=== PATIENT | female | born 1990 ===

== ENCOUNTER → 2020-02-17 09:17 | Outpatient (BNVA) | payer OTHER, SELFPAY | PROVIDERS: Visit Provider Advanced Practice Midwife | DX: Z34.83 Encounter for supervision of other normal pregnancy, third trimester (principal); Z3A.25 25 weeks gestation of pregnancy | CPT/HCPCS: 99212 ==

== ENCOUNTER 2020-02-18 08:59 | Outpatient (REF) | payer MEDICAID, SELFPAY | END 2020-02-18 09:00 | disposition home or self-care (01) | LOC: HO.LAB 08:59 | PROVIDERS: PCP Internal Medicine; Visit Provider Obstetrics & Gynecology | DX: Z13.89 Encounter for screening for other disorder (principal) ==

== ENCOUNTER 2020-02-22 09:29 | Outpatient (REF) | payer OTHER, SELFPAY ==
[2020-02-22 10:21] LABS: Basophils Percent Auto 0.2 % (0-2); Eosinophils Absolute Auto 0.1 X10*3/uL (0.0-0.4); Eosinophils Percent Auto 0.4 % (0-4); Hemoglobin 10.3 g/dl (12.0-16.0); Imm Gran Abs Auto 0.05 X10*3/uL (0.00-0.03); Imm Gran Pct Auto 0.4 % (0.0-0.4); Lymphocytes Absolute Auto 2.5 X10*3/uL (1.2-4.9); MANUAL DIFF FLAG NO; Mean Corpuscular HGB Conc 33.2 g/dl (31.0-35.0); Mean Corpuscular Hemoglobin 30.2 pg (27.0-33.0); Mean Corpuscular Volume 90.9 fL (80-98); Mean Platelet Volume 10.7 fL (9.4-12.3); Monocytes Absolute Auto 0.6 X10*3/uL (0.1-1.2); Monocytes Percent Auto 5.3 % (2-11); Neutrophils Absolute Auto 8.2 X10*3/uL (2.0-8.3); Neutrophils Percent Auto 71.7 % (45-73); Platelet Count 270 X10*3/uL (160-400); Red Blood Count 3.41 X10*6/uL (4.20-5.50); Red Cell Distribution Width 12.5 % (11.0-16.0); White Blood Count 11.5 X10*3/uL (4.8-10.8)
[2020-02-22 10:37] LABS: Glucose Fasting 88 mg/dL (60-99)
== END 2020-02-22 09:30 | disposition home or self-care (01) ==
LOC: HO.LAB 09:29
PROVIDERS: PCP Internal Medicine; Visit Provider Obstetrics & Gynecology
DX: Z34.83 Encounter for supervision of other normal pregnancy, third trimester (principal); Z3A.00 Weeks of gestation of pregnancy not specified
CPT/HCPCS: 36415; 82951; 85025

== ENCOUNTER → 2020-03-02 09:28 | Outpatient (BNVA) | payer MEDICAID, SELFPAY | PROVIDERS: Visit Provider Advanced Practice Midwife | DX: Z76.89 Persons encountering health services in other specified circumstances (principal) ==

== ENCOUNTER → 2020-03-16 10:26 | Outpatient (BNVA) | payer OTHER, SELFPAY | PROVIDERS: Visit Provider Advanced Practice Midwife | DX: O99.810 Abnormal glucose complicating pregnancy (principal); O26.899 Other specified pregnancy related conditions, unspecified trimester; Q79.60 Ehlers-Danlos syndrome, unspecified; O99.519 Diseases of the respiratory system complicating pregnancy, unspecified trimester; J45.909 Unspecified asthma, uncomplicated; O99.019 Anemia complicating pregnancy, unspecified trimester; D64.9 Anemia, unspecified; Z3A.00 Weeks of gestation of pregnancy not specified; Z79.899 Other long term (current) drug therapy; Z23 Encounter for immunization | CPT/HCPCS: 90686 ==

== ENCOUNTER → 2020-03-17 08:47 | Outpatient (BNVA) | payer MEDICAID, SELFPAY | PROVIDERS: Visit Provider Advanced Practice Midwife | DX: Z76.89 Persons encountering health services in other specified circumstances (principal) ==

== ENCOUNTER 2020-03-23 10:12 | Outpatient (REF) | payer OTHER, SELFPAY ==
[2020-03-23 13:29] LABS: Alanine Aminotransferase 15 U/L (0-31); Aspartate Amino Transferase 17 U/L (5-31); Blood Urea Nitrogen 9 mg/dL (9-16); Estimated Glomerular Filt Rate > 60; Uric Acid 3.5 mg/dL (2.4-5.7)
[2020-03-23 13:31] LABS: Glucose 1 Hour PP 50gm Dose 122 mg/dL (60-140)
[2020-03-23 13:36] LABS: Hematocrit 31.9 % (37-47); Hemoglobin 10.2 g/dl (12.0-16.0); Mean Corpuscular Hemoglobin 28.7 pg (27.0-33.0); Mean Corpuscular Volume 89.6 fL (80-98); Mean Platelet Volume 11.5 fL (9.4-12.3); Platelet Count 316 X10*3/uL (160-400); Red Blood Count 3.56 X10*6/uL (4.20-5.50); Red Cell Distribution Width 12.3 % (11.0-16.0); White Blood Count 12.6 X10*3/uL (4.8-10.8)
[2020-03-23 13:39] LABS: TSH reflex Free T4 0.71 mIU/mL (0.32-4.0)
[2020-03-23 13:56] LABS: Creatinine Urine 91.85 mg/dL; Total Protein Urine Random 9 mg/dL (<12)
== END 2020-03-23 10:13 | disposition home or self-care (01) ==
LOC: HO.LAB 10:12
PROVIDERS: PCP Internal Medicine; Visit Provider Advanced Practice Midwife
DX: O21.9 Vomiting of pregnancy, unspecified (principal); Q79.60 Ehlers-Danlos syndrome, unspecified; Z34.80 Encounter for supervision of other normal pregnancy, unspecified trimester
CPT/HCPCS: 36415; 82565; 84156; 84443; 84450; 84460; 84520; 84550; 85027

== ENCOUNTER → 2020-04-12 13:16 | Outpatient (BNVA) | payer MEDICAID, SELFPAY | PROVIDERS: Visit Provider Advanced Practice Midwife | DX: Z76.89 Persons encountering health services in other specified circumstances (principal) ==

== ENCOUNTER 2020-05-02 11:28 | Outpatient (REF) | payer OTHER, SELFPAY ==
[2020-05-03 08:27] LABS: BV Int Neg Control Negative (Negative); BV Int Pos Control Positive (Positive)
[2020-05-04 06:08] LABS: C. trachomatis RNA TMA NOT DETECTED (NOT DETECTED); N. gonorrhoeae RNA TMA NOT DETECTED (NOT DETECTED)
== END 2020-05-02 11:29 | disposition home or self-care (01) ==
LOC: HO.LNP 11:28
PROVIDERS: Visit Provider Advanced Practice Midwife
DX: Z34.80 Encounter for supervision of other normal pregnancy, unspecified trimester (principal)
CPT/HCPCS: 81003; 87081; 87480; 87491; 87510; 87591; 87660; 99212

== ENCOUNTER 2020-05-09 10:03 | Outpatient (REF) | payer OTHER, SELFPAY ==
[2020-05-09 13:11] LABS: Hemoglobin 9.1 g/dl (12.0-16.0); Mean Corpuscular HGB Conc 31.4 g/dl (31.0-35.0); Mean Corpuscular Hemoglobin 26.8 pg (27.0-33.0); Mean Corpuscular Volume 85.5 fL (80-98); Mean Platelet Volume 12.4 fL (9.4-12.3); Platelet Count 211 X10*3/uL (160-400); Red Blood Count 3.39 X10*6/uL (4.20-5.50); Red Cell Distribution Width 13.7 % (11.0-16.0); White Blood Count 12.8 X10*3/uL (4.8-10.8)
[2020-05-09 14:03] LABS: Alanine Aminotransferase 7 U/L (0-31); Aspartate Amino Transferase 15 U/L (5-31); Uric Acid 6.6 mg/dL (2.4-5.7)
[2020-05-09 14:50] LABS: Creatinine Urine 324.83 mg/dL
[2020-05-09 15:14] LABS: Total Protein Urine Random 226 mg/dL (<12)
== END 2020-05-09 10:04 | disposition home or self-care (01) ==
LOC: HO.LAB 10:03
PROVIDERS: PCP Internal Medicine; Visit Provider Advanced Practice Midwife
DX: O16.3 Unspecified maternal hypertension, third trimester (principal); O26.893 Other specified pregnancy related conditions, third trimester; O47.1 False labor at or after 37 completed weeks of gestation; K21.9 Gastro-esophageal reflux disease without esophagitis; Z3A.37 37 weeks gestation of pregnancy
CPT/HCPCS: 36415; 81003; 84156; 84450; 84460; 84550; 85027; 99212

== ENCOUNTER 2020-06-07 10:39 | Outpatient (REF) | payer OTHER, SELFPAY | END 2020-06-07 10:40 | disposition home or self-care (01) | LOC: HO.LAB 10:39 | PROVIDERS: Visit Provider Internal Medicine | DX: Z20.822 Contact with and (suspected) exposure to COVID-19 (principal) | CPT/HCPCS: 36415; C9803; U0003; U0005 ==

== ENCOUNTER → 2020-09-21 09:15 | Outpatient (BNVA) | payer OTHER, SELFPAY | PROVIDERS: Visit Provider Advanced Practice Midwife | DX: Z64.0 Problems related to unwanted pregnancy (principal) | CPT/HCPCS: 81025; 99212 ==

== ENCOUNTER → 2020-09-28 12:25 | Outpatient (BNVA) | payer OTHER, SELFPAY | PROVIDERS: Visit Provider Obstetrics & Gynecology ==

== ENCOUNTER 2020-10-07 09:06 | Outpatient (REF) | payer OTHER, SELFPAY ==
--- NOTE | ~2020-10-07 | US_ITS ---
EXAMINATION: OBSTETRICAL ULTRASOUND, FIRST TRIMESTER HISTORY: 30-year-old with unknown LMP Viability NT screening COMPARISON: 01/01/2020 TECHNIQUE: Real time transabdominal imaging with color and M-mode Doppler. FINDINGS: A single, live IUP CRL of 46.4 mm c/w 11.4wks is noted. Heart Rate: 160 beats per minute. Normal yolk sac seen. NT was 0.5.mm. NB Present The embryo appears sonographically wnl for this GA. Both maternal ovaries are seen and appear normal. GESTATIONAL AGE: 1. Established GA: N/A wks 2. GA from [facility]: 11.4 wks ESTIMATED DATE OF DELIVERY: 1. Established ELVIS: N/A 2. ELVIS from [facility]: 04/24/2021 US/US OB 1T nuc measure IMPRESSION: 1. A single live IUP 2. CRL is consistent with 11.4 weeks 3. NT of 0.5 mm MFM Consultation: I reviewed the ultrasound findings along with significance of NT measurement. The NT of less than 3mm is generally reassuring. However, the sensitivity for T21 detection is only 60%. I reviewed the availability of serum aneuploidy screening which includes cell-free DNA and placental protein based tests. I discussed the sensitivity, false-positive rate, and other limitations associated with each test. I also reviewed the availability of invasive diagnostic tests that are associated small but definite risk of miscarriage. We also reviewed the differences between screening tests and diagnostic tests. After our discussion, she opted for the First trimester screening that is based on cell-free DNA or non-invasive testing (NIPT). Her last delivery was approximately 5 months ago. She underwent IOL at approximately 3 weeks prior to her due date to preeclampsia. The recurrence risk is approximately 10%. Recommend daily baby aspirin. She has had that 3 healthy term delivery is prior to the most recent delivery in 2019. A follow up at 18 weeks for survey has been scheduled. Thank you very much for this referral. Total time 30 minutes. The time spent was devoted to counseling the patient about the disease and diagnosis, coordinating care including reviewing her records, pertinent lab data and studies, as well as discussing diagnostic evaluation and workup, plan therapeutic interventions and future disposition of care. This includes any additional research needed to obtain further information in formulating the plan of care of this patient. This note was generated with a voice recognition program. Please excuse any errors which may have been overlooked during my review of this note. Sometimes these errors may affect the content or meaning of a given sentence.
== END 2020-10-07 09:07 | disposition home or self-care (01) ==
LOC: HO.US 09:06
PROVIDERS: Visit Provider Obstetrics & Gynecology
DX: O09.891 Supervision of other high risk pregnancies, first trimester (principal)
CPT/HCPCS: 76813

== ENCOUNTER → 2020-11-28 10:00 | Outpatient (BNVA) | payer OTHER, SELFPAY | PROVIDERS: Visit Provider Advanced Practice Midwife | DX: Z34.92 Encounter for supervision of normal pregnancy, unspecified, second trimester (principal); Z3A.19 19 weeks gestation of pregnancy | CPT/HCPCS: 99212 ==

== ENCOUNTER 2020-12-09 09:57 | Outpatient (REF) | payer OTHER, SELFPAY ==
--- NOTE | ~2020-12-09 | US_ITS ---
EXAMINATION: US OBSTETRICAL CLINICAL INFORMATION: 30-year-old at 20.4 weeks of gestation Screening for anomaly COMPARISON: 10/07/2020 TECHNIQUE: Real-time transabdominal ultrasound was performed using C1-5 megahertz transducer. FINDINGS: A single, active, fetus is seen in vertex presentation. The placenta is posterior without previa, and the amniotic fluid volume is wnl. MEASUREMENTS: 1. Biparietal Diameter: 4.8 cm; 20.3 wks 2. Occipital Frontal Diameter: 6.2 cm 3. Head Circumference: 17.7 cm; 20.2 wks 4. Abdominal Circumference: 15.6 cm; 20.6 wks 5. Femur Length: 3.7 cm; 21.5 wks 6. Humerus Length: 3.0 cm; 20.1 wks 7. Tibia Length: 2.8 cm; 20.1 wks 8. Ulna Length: 2.9 cm; 20.6 wks 9. Lateral ventricle: 0.6 cm 10. Cerebellum: 2.1 cm; 20.6 wks 11. Cisterna Magna: 0.43 cm 12. Nuchal Fold: 4.1 mm 13. Heart Rate: 143 beats per minute Rt ovary: normal Lt ovary: normal Cervical length 3.8 cm on T/A. GESTATIONAL AGE: 1. Established GA: 20.4 wks 2. GA from [facility]: 20.6 wks ESTIMATED DATE OF DELIVERY: 1. Established ELVIS: 04/24/2021 2. ELVIS from [facility]: 04/22/2021 ANATOMY: The visualized anatomy includes but not limited to: 1. Cranium: Normal 2. Intracranial anatomy: cavum septum pellucidi, lateral ventricles, choroid plexus, cerebellum, posterior fossa, third and fourth ventricles. 3. face: orbits, lip/palate, profile, nasal bone 4. Heart: four-chamber view of the heart, ventricular septum, foramen ovale, pulmonary vein, left and right outflow tracts, three-vessel view, 3 vessel trachea view, aortic and ductal arches, situs.. 5. Diaphragm: Normal 6. Abdominal wall: Normal 7. Cord Insertion: Normal 8. Spine: Cervical, thoracic, lumbar, sacral. 9. Stomach: Normal size and shape 10. Right Kidney: Normal 11. Left Kidney: Normal 12. 3 vessel cord: Normal 13. Upper extremity: Open hands, fifth digit. 14. Lower extremity: Tibia, fibula, bilateral feet. 15. Bladder: Normal 16. Genitalia: Female, patient aware US/US OB /maternal detail IMPRESSION: 1. Single, living, intrauterine with appropriate biometry. 2. Normal survey DISCUSSION: I reviewed today's ultrasound findings. We discussed the limitations of ultrasound in diagnosing aneuploidy and other congenital abnormalities. I reviewed the differences between screening test and diagnostic test. Amniocentesis was discussed and declined. She was informed that the baseline incidence of congenital abnormalities is approximately 3-5%. Not all these conditions are diagnosable in utero. RECOMMENDATIONS: Follow-up when necessary Thank you for allowing me to participate in her care. Total time 30 minutes. The time spent was devoted to counseling the patient about the disease and diagnosis, coordinating care including reviewing her records, pertinent lab data and studies, as well as discussing diagnostic evaluation and workup, plan therapeutic interventions and future disposition of care. This includes any additional research needed to obtain further information in formulating the plan of care of this patient. This note was generated with a voice recognition program. Please excuse any errors which may have been overlooked during my review of this note. Sometimes these errors may affect the content or meaning of a given sentence.
== END 2020-12-09 09:58 | disposition home or self-care (01) ==
LOC: HO.US 09:57
PROVIDERS: PCP Internal Medicine; Visit Provider Advanced Practice Midwife
DX: Z36.3 Encounter for antenatal screening for malformations (principal); Z34.82 Encounter for supervision of other normal pregnancy, second trimester
CPT/HCPCS: 76811

== ENCOUNTER 2021-02-14 13:14 | Outpatient (REF) | payer OTHER, SELFPAY ==
[2021-02-15 13:56] LABS: CT PCR DETECTED (Not Detect.); NG PCR NOT DETECTED (Not Detect.)
[2021-02-16 08:38] LABS: BV Int Neg Control Negative (Negative); BV Int Pos Control Positive (Positive)
== END 2021-02-14 13:15 | disposition home or self-care (01) ==
LOC: HO.LAB 13:14
PROVIDERS: Visit Provider Advanced Practice Midwife
DX: O99.013 Anemia complicating pregnancy, third trimester (principal); O09.893 Supervision of other high risk pregnancies, third trimester; Z3A.30 30 weeks gestation of pregnancy
CPT/HCPCS: 87480; 87491; 87510; 87591; 87660; 99212

== ENCOUNTER 2021-02-17 10:44 | Outpatient (REF) | payer OTHER, SELFPAY ==
[2021-02-17 11:50] LABS: Hematocrit 29.5 % (37-47); Hemoglobin 9.6 g/dl (12.0-16.0); Mean Corpuscular HGB Conc 32.5 g/dl (31.0-35.0); Mean Corpuscular Hemoglobin 26.7 pg (27.0-33.0); Mean Corpuscular Volume 81.9 fL (80-98); Mean Platelet Volume 11.2 fL (9.4-12.3); Platelet Count 250 X10*3/uL (160-400); Red Cell Distribution Width 13.6 % (11.0-16.0); White Blood Count 8.9 X10*3/uL (4.8-10.8)
[2021-02-17 12:17] LABS: Alanine Aminotransferase 9 U/L (0-31); Aspartate Amino Transferase 14 U/L (5-31); Blood Urea Nitrogen 10 mg/dL (9-16); Estimated Glomerular Filt Rate > 60; Uric Acid 4.2 mg/dL (2.4-5.7)
[2021-02-17 12:23] LABS: Syphilis Screen Nonreactive (Nonreactive)
[2021-02-17 12:26] LABS: Amphetamine Screen Urine Not Detected (Not Detect); Barbiturates, Urine Not Detected (Not Detect); Benzodiazepines Screen Urine Not Detected (Not Detect); Cannabinoid Screen Urine Not Detected (Not Detect); Cocaine Screen Urine Not Detected (Not Detect); Fentanyl, urine Not Detected (Not Detect); Opiate Screen Urine Not Detected (Not Detect); Phencyclidine Screen Urine Not Detected (Not Detect)
[2021-02-17 12:27] LABS: Protein/Creatinine Ratio, Ur 0.08 (<0.2); Total Protein Urine Random 25 mg/dL (<12)
[2021-02-18 13:22] LABS: Rubella IgG Antibody 1.99 Index; Varicella IgG Antibody <135.00 index
[2021-02-20 04:22] LABS: HIV AB/AG Nonreactive (Nonreactive); HIV Num 1 0.07 S/CO (0.00-0.99); ~HepC Num1 0.26 S/CO (0.00-0.79); ~Hepatitis C Antibody Nonreactive (Nonreactive)
[2021-02-20 04:33] LABS: HBsAGNum1 0.24 S/CO (0.00-0.99); Hepatitis B Surface Antigen Negative (Negative)
== END 2021-02-17 10:45 | disposition home or self-care (01) ==
LOC: HO.LAB 10:44
PROVIDERS: PCP Internal Medicine; Visit Provider Advanced Practice Midwife
DX: O09.891 Supervision of other high risk pregnancies, first trimester (principal); O16.3 Unspecified maternal hypertension, third trimester; O99.013 Anemia complicating pregnancy, third trimester
CPT/HCPCS: 80307; 82565; 84156; 84450; 84460; 84520; 84550; 85027; 86762; 86780; 86787; 86803; 86850; 86900; 86901; 87086; 87340; 87389

== ENCOUNTER → 2021-03-03 09:07 | Outpatient (BNVA) | payer OTHER, SELFPAY | PROVIDERS: Visit Provider Advanced Practice Midwife | DX: O09.293 Supervision of pregnancy with other poor reproductive or obstetric history, third trimester (principal); Z3A.32 32 weeks gestation of pregnancy | CPT/HCPCS: 81003; 99212 ==

== ENCOUNTER 2021-03-17 08:08 | Outpatient (REF) | payer OTHER, SELFPAY ==
[2021-03-17 11:18] LABS: Glucose 1 Hour PP 50gm Dose 137 mg/dL (60-140)
[2021-03-17 11:42] LABS: Alanine Aminotransferase 8 U/L (0-31); Aspartate Amino Transferase 14 U/L (5-31); Blood Urea Nitrogen 11 mg/dL (9-16); Uric Acid 4.4 mg/dL (2.4-5.7)
[2021-03-17 12:17] LABS: Creatinine Urine 74.34 mg/dL; Protein/Creatinine Ratio, Ur 0.12 (<0.2); Total Protein Urine Random 9 mg/dL (<12)
== END 2021-03-17 08:09 | disposition home or self-care (01) ==
LOC: HO.LAB 08:08
PROVIDERS: Absent Provider Advanced Practice Midwife; Visit Provider Advanced Practice Midwife
DX: O09.293 Supervision of pregnancy with other poor reproductive or obstetric history, third trimester (principal); O09.893 Supervision of other high risk pregnancies, third trimester; Z3A.34 34 weeks gestation of pregnancy
CPT/HCPCS: 36415; 81003; 84156; 84450; 84460; 84520; 84550; 99212

== ENCOUNTER 2021-04-05 08:41 | Outpatient (REF) | payer OTHER, SELFPAY ==
[2021-04-06 02:52] LABS: CT PCR NOT DETECTED (Not Detect.); NG PCR NOT DETECTED (Not Detect.)
== END 2021-04-05 08:42 | disposition home or self-care (01) ==
LOC: HO.LAB 08:41
PROVIDERS: Visit Provider Advanced Practice Midwife
DX: O09.893 Supervision of other high risk pregnancies, third trimester (principal); O99.013 Anemia complicating pregnancy, third trimester; D64.9 Anemia, unspecified; Z3A.37 37 weeks gestation of pregnancy
CPT/HCPCS: 81003; 87081; 87147; 87186; 87491; 87591; 99212

== ENCOUNTER 2021-04-07 12:01 | Outpatient (REF) | payer OTHER, SELFPAY ==
--- NOTE | ~2021-04-07 | US_ITS ---
EXAMINATION: OBSTETRICAL ULTRASOUND, Follow up HISTORY: 30-year-old at 37.3 weeks of gestation Size date discrepancy COMPARISON: 12/29/2020 TECHNIQUE: Real time transabdominal imaging with color and M-mode Doppler. PRESENTATION: Vertex PLACENTA LOCATION: Posterior without previa AMNIOTIC FLUID: Maximum vertical pocket: 4.5 cm MEASUREMENTS: 1. Biparietal Diameter: 8.8 cm; 35.3 wks 2. Head Circumference: 32.1 cm; 36.2 wks 3. Abdominal Circumference: 32.7 cm; 36.5 wks 4. Femur Length: 6.8 cm; 35.1 wks 5. Heart Rate: 127 beats per minute WEIGHT: EFW: 2850 grams (6 lbs 5 oz) -- 25 %. BIOPHYSICAL PROFILE: Motion: 2 Tone: 2 Breathin Amniotic Fluid: 2 Total score: 8/8 GESTATIONAL AGE: 1. Established GA: 37.5 wks 2. GA from [facility]: 36.0 wks ESTIMATED DATE OF DELIVERY: 1. Established ELVIS: 04/25/2021 2. ELVIS from [facility]: 05/05/2021 US/US OB follow up IMPRESSION: 1. A single active fetus is in vertex presentation 2. Size equals dates 3. Reassuring biophysical profile with normal amniotic fluid volume. Thank you very much for this referral. This note was generated with a voice recognition program. Please excuse any errors which may have been overlooked during my review of this note. Sometimes these errors may affect the content or meaning of a given sentence.
== END 2021-04-07 12:02 | disposition home or self-care (01) ==
LOC: HO.US 12:01
PROVIDERS: Visit Provider Advanced Practice Midwife
DX: O09.893 Supervision of other high risk pregnancies, third trimester (principal); Z3A.37 37 weeks gestation of pregnancy
CPT/HCPCS: 76816

== ENCOUNTER → 2021-04-12 08:39 | Outpatient (BNVA) | payer OTHER, SELFPAY | PROVIDERS: Visit Provider Advanced Practice Midwife | DX: O99.013 Anemia complicating pregnancy, third trimester (principal); Z3A.38 38 weeks gestation of pregnancy; O09.293 Supervision of pregnancy with other poor reproductive or obstetric history, third trimester | CPT/HCPCS: 81003; 99212 ==

== ENCOUNTER → 2021-04-19 10:18 | Outpatient (BNVA) | payer OTHER, SELFPAY | PROVIDERS: Visit Provider Advanced Practice Midwife | DX: O99.013 Anemia complicating pregnancy, third trimester (principal); O09.293 Supervision of pregnancy with other poor reproductive or obstetric history, third trimester; B95.1 Streptococcus, group B, as the cause of diseases classified elsewhere; Z3A.39 39 weeks gestation of pregnancy | CPT/HCPCS: 99212 ==

== ENCOUNTER 2021-07-31 14:30 | Outpatient (REF) | payer OTHER, SELFPAY ==
[2021-08-01 08:14] LABS: CT PCR NOT DETECTED (Not Detect.); NG PCR NOT DETECTED (Not Detect.)
== END 2021-07-31 14:31 | disposition home or self-care (01) ==
LOC: HO.LAB 14:30
PROVIDERS: Visit Provider Advanced Practice Midwife
DX: Z01.419 Encounter for gynecological examination (general) (routine) without abnormal findings (principal); Z20.2 Contact with and (suspected) exposure to infections with a predominantly sexual mode of transmission; Z79.899 Other long term (current) drug therapy; Z32.02 Encounter for pregnancy test, result negative
CPT/HCPCS: 81025; 87491; 87591

== ENCOUNTER 2022-08-02 08:53 | Outpatient (REF) | payer OTHER, SELFPAY | END 2022-08-02 08:54 | disposition home or self-care (01) | LOC: HO.LAB 08:53 | PROVIDERS: Visit Provider Advanced Practice Midwife | DX: R10.2 Pelvic and perineal pain (principal); Z20.2 Contact with and (suspected) exposure to infections with a predominantly sexual mode of transmission | CPT/HCPCS: 81025 ==

== ENCOUNTER 2022-08-02 10:12 | Outpatient (REF) | payer OTHER, SELFPAY ==
[2022-08-03 12:32] LABS: BV Int Neg Control Negative (Negative); BV Int Pos Control Positive (Positive)
[2022-08-03 13:37] LABS: CT PCR NOT DETECTED (Not Detect.); NG PCR NOT DETECTED (Not Detect.)
[2022-08-07 04:08] LABS: HPV mRNA E6/E7 rflx Not Detected (Not Detected)
== END 2022-08-02 10:13 | disposition home or self-care (01) ==
LOC: HO.LNP 10:12
PROVIDERS: Visit Provider Advanced Practice Midwife
DX: Z01.419 Encounter for gynecological examination (general) (routine) without abnormal findings (principal); R10.2 Pelvic and perineal pain; Z20.2 Contact with and (suspected) exposure to infections with a predominantly sexual mode of transmission; Z11.51 Encounter for screening for human papillomavirus (HPV)
CPT/HCPCS: 0353U; 87480; 87510; 87624; 87660; 88142

== ENCOUNTER 2022-10-11 14:00 | Outpatient (REF) | payer OTHER, SELFPAY ==
--- NOTE | ~2022-10-11 | US_ITS ---
EXAMINATION: US PELVIS CLINICAL INFORMATION: Pelvic and perineal pain. COMPARISON: CT abdomen and pelvis 09/14/2017 and prior OB ultrasounds. TECHNIQUE: Ultrasound of the pelvis was performed using both transabdominal and transvaginal transducers along with Doppler. Transvaginal imaging was performed due to inadequate visualization transabdominally. FINDINGS: Uterus: The uterus is anteverted and anteflexed and measures 9.4 x 4.1 x 5.3 cm. The double wall endometrial thickness is 1.6 mm. There is one area of heterogeneity suggesting the presence of an endometrial polyp measuring about 0.5 x 1.3 cm. The uterus is smooth in contour and has normal myometrial echogenicity. No visible fibroid. Adnexa: Both ovaries are visualized. There is normal color flow to the adnexa. There is no ovarian torsion. There is no pelvic ascites or fluid collection. Right ovary measures 3.8 x 1.6 x 2.1 cm for a volume of 6.7 mL. Left ovary measures 3.8 x 1.8 x 2.5 cm for a volume of 9.0 mL which includes a single, benign-appearing 1.7 cm cyst with a septation. US/US pelvic and transvaginal IMPRESSION: 1. Question of a small endometrial polyp. Hysterosonography is recommended for further evaluation. 2. Benign-appearing left ovarian cyst needs no additional followup.
== END 2022-10-11 14:01 | disposition home or self-care (01) ==
LOC: HO.US 14:00
PROVIDERS: Visit Provider Advanced Practice Midwife
DX: R10.2 Pelvic and perineal pain (principal)
CPT/HCPCS: 76830; 76856

== ENCOUNTER → 2022-10-19 10:05 | Outpatient (BNVA) | payer OTHER, SELFPAY | PROVIDERS: Visit Provider Advanced Practice Midwife ==

== ENCOUNTER → 2022-10-30 12:08 | Outpatient (BNVA) | payer OTHER, SELFPAY | PROVIDERS: Visit Provider Obstetrics & Gynecology | DX: N84.0 Polyp of corpus uteri (principal); N83.202 Unspecified ovarian cyst, left side | CPT/HCPCS: 99212 ==

== ENCOUNTER 2022-11-15 08:13 | Outpatient (AMB) | payer OTHER, SELFPAY ==
--- NOTE | 2022-11-15 08:45 | MHC.OFFVIS ---
Intake Vital Signs 11/15/22 08:53 Height 5 ft 4 in Weight 119 lb 0.794 oz BMI 20.4 BP 98/62 Intake Visit Reasons: pre op Hyst D&C Cook [employer] Food Required: Yes [employer] Language: Private Client Advisor Name: Elizabeth FELIZ Information Interpreted: non-clinical & clinical Hospice Care Transitions Coordinator: Hospice Care Transitions Coordinator Present Accompanied by: Self / Same As Patient Allergies penicillin V Allergy (Unknown, Verified 11/15/22 08:54) shortness of breath Is last menstrual period known: Yes Last menstrual period: 03/03/20 Post menopausal: No Patient : No Do you need a note to return to daycare/school/sports/work: Yes (for surgery on saturday) HPI HPI Comments History of Present Illness Details Presenting to discuss hysteroscopy D&C possible polypectomy PFSH Medical History Asthma Lucas-Danlos syndrome Endometrial polyp Left ovarian cyst Surgical History Hx of cholecystectomy Family History Paternal Grandfather Medical history non-contributory Paternal Grandmother Cancer Maternal Grandmother Medical history non-contributory Asthma Maternal Grandfather Medical history non-contributory Father Medical history non-contributory Mother Medical history non-contributory Social History Household Members: Children Both parents involved: Yes Housing: Apartment Alcohol intake: never Patient Tobacco Use Status: Never used Tobacco Sexual orientation: Straight/Heterosexual Gender identity: Female Female Reproductive History Menstrual Age of Menarche: 14 Date of last menstrual period: 03/03/20 Total pregnancies: 2 Full term: 2 Review of Systems Card Reports as per HPI and Reports no additional complaints Resp Reports as per HPI and Reports no additional complaints GI Reports as per HPI and Reports no additional complaints Reports as per HPI Physical Exam Vital Signs: Last Vital Signs BP 98/62 11/15/22 08:53 BMI result Body Mass Index 20.4 Const General: cooperative, healthy appearing and comfortable Chest Chest palpation & inspection: normal inspection of the chest and normal palpation of entire chest wall Breast/axilla inspection: normal inspection of the breasts and normal inspection of the axillae Breast/axilla palpation: normal palpation of the breasts, normal palpation of the axillae and no axillary lymphadenopathy Resp Effort & Inspection: normal respiratory effort Auscultation: clear to auscultation bilaterally Percussion: percussion normal Cardio Palpation: normal PMI Rate: regular rate Rhythm: regular rhythm Heart sounds: no murmurs and no rubs Peripheral pulses: Peripheral pulses 2+ throughout GI Inspection: Yes normal to inspection Palpation (GI): Soft to palpation, nontender, no guarding, not rigid and No hepatosplenomegaly present Percussion: Yes normal to percussion Auscultation: normal bowel sounds Rectal Exam - Female: deferred Assessment & Plan Assessment & Plan (1) Endometrial polyp: Code(s): N84.0 - Polyp of corpus uteri Plan: Discussed with the patient the procedure , all benefits and risks including but not limited to inability to complete the procedure , bleeding, infection, possible need for blood transfusion with all its risk ( HIV,syphilis, Hepatitis, anaphylaxis shock, others..), injury to bladder, rectum, possible need for laparoscopy/laparotomy or hysterectomy. The patient verbalized understanding and signed the consent. Instructions given the patient to schedule a 2 week postoperative appointment Coding Level of Care Code Est Pt Level 3 (49263) Diagnoses Endometrial polyp N84.0
[2022-11-15 08:53] VITALS: BP 98/62; BMI 20.4
== END 2022-11-15 09:06 | disposition home or self-care (01) ==
LOC: HO.HWS 08:13
PROVIDERS: Visit Provider Obstetrics & Gynecology
DX: N84.0 Polyp of corpus uteri (principal)
CPT/HCPCS: 99213

== ENCOUNTER → 2022-11-15 08:13 | Outpatient (BNVA) | payer OTHER, SELFPAY | PROVIDERS: Visit Provider Obstetrics & Gynecology | DX: N84.0 Polyp of corpus uteri (principal) | CPT/HCPCS: 99212 ==

== ENCOUNTER 2022-12-14 07:51 | Day surgery (SDC) | payer OTHER, SELFPAY ==
[2022-12-11 13:52] VITALS: BMI 20.4
--- NOTE | 2022-12-13 08:27 | HO.ANESPROP2 ---
Documented by User: Nhung Barraza NP 12/13/22 08:27 HPI - Anesthesia Eval Consult details Narrative: 32yo F for D&C Hysteroscopy poss myomectomy/polypectomy PMFSH Active Problems Active Problems: All Active Problems (Updated 10/30/22 @ 12:19 by Warner Davidson MD) Complex ovarian cyst (Acute) Left ovarian cyst (Acute) Endometrial polyp (Acute) Past Medical History Medical History Asthma Lucas-Danlos syndrome Endometrial polyp Left ovarian cyst Family History Family History Paternal Grandfather Medical history non-contributory Paternal Grandmother Cancer Maternal Grandmother Medical history non-contributory Asthma Maternal Grandfather Medical history non-contributory Father Medical history non-contributory Mother Medical history non-contributory Surgical History Surgical History Hx of cholecystectomy Social History Social History Household Members: Children Housing: Apartment Alcohol intake: never Patient Tobacco Use Status: Never used Tobacco Advance Directives: No Advance Directives Information Provided: Yes Patient : No Sexual orientation: Straight/Heterosexual Gender identity: Female Meds Allergies Allergy/AdvReac Type Severity Reaction Status Date / Time penicillin V Allergy Unknown shortness Verified 11/15/22 08:54 of breath Home Medications Medication Instructions Recorded Confirmed Last Taken Type No Known Home Meds 10/19/22 12/11/22 Unknown History Exam Exam Date and Time: December 13, 2022 0827 Height,Weight and Vital Signs: Height 5 ft 4 in Weight 53.977 kg Assessment and Plan Assessment Anesthesia Assessment: Chart Reviewed Documented by User: Maribel Miramontes MD 12/14/22 09:20 PMFSH Active Problems Active Problems: All Active Problems (Updated 12/14/22 @ 08:45 by Maribel Miramontes MD) Complex ovarian cyst (Acute) Left ovarian cyst (Acute) Endometrial polyp (Acute) Past Medical History Medical History Asthma Lucas-Danlos syndrome Endometrial polyp Left ovarian cyst Family History Family History Paternal Grandfather Medical history non-contributory Paternal Grandmother Cancer Maternal Grandmother Medical history non-contributory Asthma Maternal Grandfather Medical history non-contributory Father Medical history non-contributory Mother Medical history non-contributory Family history of problems with anesthesia: No Surgical History Surgical History Hx of cholecystectomy History of Problems with Anesthesia: No Social History Social History Household Members: Children Housing: Apartment Alcohol intake: never Patient Tobacco Use Status: Never used Tobacco Advance Directives: No Advance Directives Information Provided: Yes Patient : No Sexual orientation: Straight/Heterosexual Gender identity: Female Meds Allergies Allergy/AdvReac Type Severity Reaction Status Date / Time penicillin V Allergy Unknown shortness Verified 11/15/22 08:54 of breath Home Medications Medication Instructions Recorded Confirmed Last Taken Type No Known Home Meds 10/19/22 12/11/22 Unknown History Exam Height,Weight and Vital Signs: Height 5 ft 4 in Weight 53.977 kg Vital Signs Temp Pulse Resp BP Pulse Ox O2 Del Method 12/14/22 08:20 98.3 F 84 16 121/81 100 Room Air Pertinent Lab Results Pertinent Lab Results: Lab Results 12/14/22 Range/Units 08:06 Urine Test NEGATIVE (NEGATIVE) Airway Mallampati Class: II TM Dist: >3cm Neck ROM: Full Loose/Missing/Broken Teeth: No (Denies broken, loose, missing teeth) Heart: RRR Lungs: CTAB Assessment and Plan Assessment Anesthesia Assessment: Anesthesia Plan Discussed Final Anesthetic Review Family History of Problems with Anesthesia: No History of Problems with Anesthesia: No NPO: Yes ASA Class: III Final Preanesthetic Review: No Changes in Pt Med Stat, Meds/Allgs Chart Reviewed, Consent Obtained/Reviewed and Anes Risks/Benef Reviewed Patient Risk: Intermediate Procedure Risk: Low Assessment/Block/Sedation in SS: Assess/Block/Sedation-SS Anesthetic Plan Anesthetic Plan: GA Disposition: Standard PACU
[2022-12-14] VITALS (7 sets, daily range): BP systolic 106–136; BP diastolic 65–81; PULSE 61–99; RESP 16–20; TEMP 36.3–37.2; O2SAT 99–100
[2022-12-14 08:20] LABS: UPreg QC Valid YES; Urine Pregnancy NEGATIVE (NEGATIVE)
[2022-12-14] MEDS: Lactated Ringers 1,000 ML 100 ML IVCONT (08:21)
--- NOTE | 2022-12-14 09:05 | MHC.SHP ---
Pre-Procedural Eval Section A Date of Service: 12/14/22 The patient is an INPATIENT: No Changes since office visit: No Cold of Flu in the past 2 weeks, No New Medical Problems, No Changes in Medication and No Patient answered all questions The History & Physical has been completed within 30 days and I have reviewed it.: Yes Section B Chief Complaint: Polyp of corpus uteri Allergies: Allergies Allergy/AdvReac Type Severity Reaction Status Date / Time penicillin V Allergy Unknown shortness Verified 11/15/22 08:54 of breath Plan Diagnosis/Plan: Unchanged I have reviewed the history and physical and performed a pertinent physical examination on my patient. No changes have occurred unless specified. Time Spent With Patient Time: Total time managing care of this patient today ____ minutes.
--- NOTE | 2022-12-14 09:44 | P.OP_ITS ---
Operative Note Operative Note Date of Service: 12/14/22 Narrative: Preop Diagnosis: Endometrial polyp by US Operation: Diagnostic Hysteroscopy, Dilataion & Curettage and polypectomy Post Op Diagnosis: Endometrial Polyp QBL: Minimal Anesthesia: GLMA Surgeon: Warner Davidson MD Assistant At Surgery: None Complication: None Pathology: Endometrial Scrapings, Endometrial polyp Procedure: The patient was put in the dorsal lithotomy position, scrubbed, and draped in the usual manner. A sterile speculum was inserted in the patient's vagina. The anterior lip of the cervix was grasped with a single tooth tenaculum. The cervix was dilated up to 5 mm, then the scope was inserted in the patient's uterus. Inspection revealed endometrial polyp. The Myosure Reach device was used; it was introduced through the operative channel and polypectomy done with no complications. The scope was then taken out from the uterine cavity, sharp curettings was carried on with minimal to moderate amount of tissues retrieved. At the end of the procedure, all instruments were taken out of the patient uterine and vaginal cavity. The single tooth tenaculum was removed and homeostasis was assured using pressure,. The patient tolerated the procedure well and was transferred to the PACU in a stable condition.
--- NOTE | 2022-12-14 09:44 | P.BOP_ITS ---
Brief Operative Note Date of Service: 12/14/22 Pre-op diagnosis: Endometrial polyp by ultrasound Post-op diagnosis: same Procedure: Hysteroscopy D&C, Polypectomy Surgeon: Warner Davidson MD Anesthesia: GLMA Was an Parts Counter Sales Person used for this Procedure?: No Estimated blood loss (mL): 0 Pathology: other (Endometrial Scrapping. Polyp) Condition: stable Disposition: PACU
[2022-12-14] MEDS: Acetaminophen 325 MG TABLET 650 MG PO (10:04)
[2022-12-14] MEDS: oxyCODONE HCl Immed Release 5 MG TABLET PO (10:05)
== END 2022-12-14 11:25 | disposition home or self-care (01) ==
PROVIDERS: Nurse Practitioner; Visit Provider Obstetrics & Gynecology
PROC: 0UDB8ZZ Extraction of Endometrium, Via Natural or Artificial Opening Endoscopic (ICD-10-PCS; CPT 58558; principal; 2022-12-14 09:30)
DX: N84.0 Polyp of corpus uteri (principal); Q79.60 Ehlers-Danlos syndrome, unspecified; N83.202 Unspecified ovarian cyst, left side; J45.909 Unspecified asthma, uncomplicated; Z90.49 Acquired absence of other specified parts of digestive tract; Z88.0 Allergy status to penicillin
CPT/HCPCS: 58558; 81025; 88305; J1100; J1885; J2250; J2405

== ENCOUNTER → 2022-12-14 07:51 | Outpatient (BNV) | payer OTHER, SELFPAY | PROVIDERS: Visit Provider Obstetrics & Gynecology | DX: N84.0 Polyp of corpus uteri (principal) | CPT/HCPCS: 58558 ==

== ENCOUNTER 2023-01-15 10:02 | Outpatient (AMB) | payer OTHER, SELFPAY ==
--- NOTE | 2023-01-15 10:07 | MHC.OFFVIS ---
Intake Vital Signs 01/15/23 10:09 Height 5 ft 4 in Weight 118 lb BMI 20.3 BP 116/70 Intake Visit Reasons: POST OP Esthetician Required: Yes Esthetician Language: Occupational Therapy Director Name: Elizabeth FELIZ Information Interpreted: non-clinical & clinical Accompanied by: Self / Same As Patient Allergies penicillin V Allergy (Unknown, Verified 01/15/23 10:10) shortness of breath HPI HPI Comments History of Present Illness Details The patient is presenting post hysteroscopy D&C no complaints minimal vaginal bleeding no feverishness chills or abdominal pain. The pathology showed the following: A. Endometrium, curettage: Secretory endometrium; no atypia or hyperplasia identified. B. Endometrium, polypectomy: Polypoid fragments of secretory endometrium; no atypia or hyperplasia identified The patient is insertion discuss different options of control PFSH Medical History Left ovarian cyst Endometrial polyp Asthma Lucas-Danlos syndrome Surgical History Hx of cholecystectomy Family History Paternal Grandfather Medical history non-contributory Paternal Grandmother Cancer Maternal Grandmother Medical history non-contributory Asthma Maternal Grandfather Medical history non-contributory Father Medical history non-contributory Mother Medical history non-contributory Social History Household Members: Children Both parents involved: Yes Housing: Apartment Alcohol intake: never Patient Tobacco Use Status: Never used Tobacco Sexual orientation: Straight/Heterosexual Gender identity: Female Female Reproductive History Menstrual Age of Menarche: 14 Review of Systems Const All systems reviewed & are unremarkable except as noted in HPI and below Reports as per HPI and Reports no additional complaints GI Reports no additional complaints Reports no additional complaints Assessment & Plan Assessment & Plan (1) Endometrial polyp: Code(s): N84.0 - Polyp of corpus uteri Plan: Discussed with the patient the intraoperative finding, endometrial polyp and is pathology, benign, secretory endometrium. The patient was reassured. Instructions given the patient to call in case of abnormal uterine bleeding, pelvic pain, temperature above 100.4 or any other concerns. Otherwise follow-up in the office as needed. All questions answered, the patient verbalized understanding. (2) Family planning: Code(s): Z30.09 - Encounter for other general counseling and advice on contraception Plan: Discussed with the patient the different options of control including control pills/Nuvaring, DMPA, different types of IUD ?s, sterilization. All the pros, cons, risks and benefits of each were discussed with the patient. Explained to patient with her history of Lucas-Danlos syndrome recommended vasectomy with her partner. The patient verbalized understanding agreed with the plan an would discuss it with her partner . Coding Level of Care Code Est Pt Level 3 (09941) Diagnoses Endometrial polyp N84.0 Family planning Z30.09
[2023-01-15 10:09] VITALS: BP 116/70; BMI 20.3
== END 2023-01-15 10:47 | disposition home or self-care (01) ==
PROVIDERS: Visit Provider Obstetrics & Gynecology
DX: N84.0 Polyp of corpus uteri (principal); Z30.09 Encounter for other general counseling and advice on contraception
CPT/HCPCS: 99213

== ENCOUNTER → 2023-01-15 10:02 | Outpatient (BNVA) | payer OTHER, SELFPAY | PROVIDERS: Visit Provider Obstetrics & Gynecology | DX: N84.0 Polyp of corpus uteri (principal); Z98.890 Other specified postprocedural states | CPT/HCPCS: 99212 ==

== ENCOUNTER 2023-03-15 11:40 | Outpatient (REF) | payer OTHER, SELFPAY ==
--- NOTE | ~2023-03-15 | US_ITS ---
EXAMINATION: US PELVIS CLINICAL INFORMATION: Other ovarian cysts, unspecified side LMP 03/07/2023 COMPARISON: Pelvic ultrasound 10/12/2022 TECHNIQUE: Ultrasound of the pelvis is performed using both transabdominal and transvaginal transducers along with Doppler. Transvaginal imaging is performed due to inadequate visualization transabdominally. FINDINGS: Uterus: The uterus is anteverted and measures 7.5 x 4.2 x 4.9 cm. The endometrium is trilaminar and measures 1.0 cm. Adnexa: Both ovaries are visualized. There is normal color flow to the adnexa. There is no ovarian torsion. There is no pelvic ascites or fluid collection. Right ovary measures 3.2 x 1.8 x 3.3 cm. Volume 10.0 mL. Multiple peripheral subcentimeter follicles are seen. Left ovary measures 4.4 x 1.4 x 5.7 cm. Volume 5.3 cm. The left ovary contains a 1.2 cm simple follicle and a 0.9 cm septated follicle, previously measured 1.7 cm. US/US pelvic and transvaginal IMPRESSION: 1. Normal uterus and endometrial stripe. 2. Mildly enlarged ovary. 3. Benign-appearing left ovarian follicles need no additional follow-up.
== END 2023-03-15 11:41 | disposition home or self-care (01) ==
LOC: HO.US 11:40
PROVIDERS: Visit Provider Obstetrics & Gynecology
DX: N83.299 Other ovarian cyst, unspecified side (principal)
CPT/HCPCS: 76830; 76856

== ENCOUNTER 2023-04-24 11:09 | Outpatient (AMB) | payer OTHER, SELFPAY ==
--- NOTE | 2023-04-24 11:09 | MHC.OFFVIS ---
Intake Vital Signs 04/24/23 11:12 Height 5 ft 4 in Weight 116 lb 13.52 oz BMI 20.1 BP 112/66 Intake Visit Reasons: US follow up Certified Nurse Practitioner Required: Yes Certified Nurse Practitioner Language: Spray Gunner Name: Elizabeth FELIZ Information Interpreted: non-clinical & clinical Accompanied by: Self / Same As Patient Allergies penicillin V Allergy (Unknown, Verified 04/24/23 11:12) shortness of breath Is last menstrual period known: Yes Last menstrual period: 04/12/23 HPI HPI Comments History of Present Illness Details Presenting for ultrasound follow-up regarding complex left ovarian cyst seen on a previous ultrasound in 10/26 measuring 1.7 cm cyst with a septum. Repeat pelvic ultrasound in 03/15/2023 showed the following: Uterus: The uterus is anteverted and measures 7.5 x 4.2 x 4.9 cm. The endometrium is trilaminar and measures 1.0 cm. Adnexa: Both ovaries are visualized. There is normal color flow to the adnexa. There is no ovarian torsion. There is no pelvic ascites or fluid collection. Right ovary measures 3.2 x 1.8 x 3.3 cm. Volume 10.0 mL. Multiple peripheral subcentimeter follicles are seen. Left ovary measures 4.4 x 1.4 x 5.7 cm. Volume 5.3 cm. The left ovary contains a 1.2 cm simple follicle and a 0.9 cm septated follicle, previously measured 1.7 cm. In addition, the patient interested in discussing different methods of control PFSH Medical History Left ovarian cyst Endometrial polyp Asthma Lucas-Danlos syndrome Surgical History Hx of cholecystectomy Family History Paternal Grandfather Medical history non-contributory Paternal Grandmother Cancer Maternal Grandmother Medical history non-contributory Asthma Maternal Grandfather Medical history non-contributory Father Medical history non-contributory Mother Medical history non-contributory Social History Household Members: Children Both parents involved: Yes Housing: Apartment Alcohol intake: never Comment: period cramps Patient Tobacco Use Status: Never used Tobacco Sexual orientation: Straight/Heterosexual Gender identity: Female Female Reproductive History Menstrual Age of Menarche: 14 Date of last menstrual period: 04/12/23 control method: none Review of Systems Const All systems reviewed & are unremarkable except as noted in HPI and below Reports as per HPI and Reports no additional complaints GI Reports no additional complaints Reports no additional complaints Physical Exam Vital Signs: Last Vital Signs BP 112/66 04/24/23 11:12 BMI result Body Mass Index 20.1 Assessment & Plan Assessment & Plan (1) Complex ovarian cyst: Comment: Septate follicle decreased in size to 0.9 cm Code(s): N83.299 - Other ovarian cyst, unspecified side Plan: Discussed with the patient the complex ovarian cyst by ultrasound. Discussed with the patient the Ultrasound findings, the main limitation of transvaginal ultrasonography alone as a diagnostic tool to distinguish benign from malignant masses relates to its lack of specificity and low positive predictive value for cancer. The differential diagnosis discussed with the patient includes the following but not limited to: benign and malignant gynecological and non-gynecological causes. Discussed with the patient options of treatment ,including laparoscopy ovarian cystectomy/oophorectomy vs. expectant management with repeat US in repeating pelvic US in 6-12 weeks from previous US. If the ovarian complex cyst is persistent larger and / or more complex looking, will refer to gynecologic Oncology. All pros, cons, risks and benefits of each approach were discussed with the patient including but not limited to a delay in the diagnosis and treatment of ovarian cancer affecting the prognosis; The patient decided to go ahead with expectant management. Instructions given the patient to schedule a 3 months follow-up ultrasound appointment. All questions were answered & the patient verbalized understanding and agreed with the plan. (2) Family planning: Code(s): Z30.09 - Encounter for other general counseling and advice on contraception Plan: Discussed with the patient the different options of control including control pills/Nuvaring, DMPA, IUD (Mirena, Paraguard). All the pros, cons, risks and benefits of each were discussed with the patient. The patient decided to go ahead with DMPA so a more detailed discussion re: Depo-Provera including mechanism of action, benefits (amenorrhea after initial dub, ...), risks ( mood lability, weight gain, initial dub, bone loss reversible, ? increase Breast Cancer risk, others). Instructions were given to use a back up method for contraception till next day 1 of menses and will give the patient DMPA day1-5 next cycle. The patient verbalized understanding. Orders: Orders US pelvic and transvaginal 3 Months N83.299 - Other ovarian cyst, unspecified side Medications: New medroxyprogesterone (Depo-Provera) 150 mg IM [id number] 1 mL 3RF Coding Level of Care Code Est Pt Level 3 (08358) Diagnoses Complex ovarian cyst N83.299 Family planning Z30.09
[2023-04-24 11:12] VITALS: BP 112/66; BMI 20.1
== END 2023-04-24 11:36 | disposition home or self-care (01) ==
LOC: HO.HWS 11:09
PROVIDERS: Visit Provider Obstetrics & Gynecology
DX: N83.299 Other ovarian cyst, unspecified side (principal); Z30.09 Encounter for other general counseling and advice on contraception
CPT/HCPCS: 99213

== ENCOUNTER → 2023-04-24 11:09 | Outpatient (BNVA) | payer OTHER, SELFPAY | PROVIDERS: Visit Provider Obstetrics & Gynecology | DX: Z30.09 Encounter for other general counseling and advice on contraception (principal); N83.299 Other ovarian cyst, unspecified side | CPT/HCPCS: 99212 ==

== ENCOUNTER 2023-04-30 09:58 | Outpatient (AMB) | payer OTHER, SELFPAY ==
[2023-04-30 10:25] VITALS: BMI 20.5
--- NOTE | 2023-04-30 10:25 | AM.OFFVISNUR ---
Intake Vital Signs 04/30/23 10:25 Height 5 ft 4 in Weight 54.091 kg BMI 20.5 Intake Visit Reasons: DEPO Allergies penicillin V Allergy (Unknown, Verified 04/24/23 11:12) shortness of breath Nursing Note Sierra is here today for her Depo-Provera restart. [facility] Pt presented with medication in sealed bag with receipt attached. Medication administered as directed. No c/o. Follow up in 12 weeks as directed. Office Procedures Depo Questionnaire If YES to any of the following questions, please consult a provider. Date of last injection: 08/13/22 Date of last menstrual period: 04/27/23 Menstrual pattern since last injection has been: Not Applicable test in office results: Negative Irregular bleeding?: No Breast lumps or other breast changes?: No Changes in weight or appetite?: No Depression or changes in mood?: No Abnormal hair growth or loss?: No Skin problems (rash, acne, discoloration)?: No Pain at the injection site?: No Headaches?: No Nervousness?: No Abdominal pain or cramping?: No Dizziness or nausea?: No Fatigue or weakness?: No Decrease in sexual drive?: No Chest pain or shortness of breath?: No Swelling in arms or legs?: No Form completed by?: Felicitas Dolan LPN Office Meds Depo-Provera 150 mg/mL intramuscular syringe Performing Provider: Warner Davidson MD Performing Location: [facility] [place] [facility] Administered by: Akiko Dolan LPN on 04/30/23 10:25 Dose Route Admin Location Dispensed Lot Number Expiration Date [facility] Community Arts Worker 150 mg IM Left deltoid 1 mL [id number] 06/05/25 09190-739-19 [facility] Results AMB Test Urine AMB Test Urine Negative Last Edit by Akiko Dolan LPN on 04/30/23 10:33 Depo-provera restart Coding Level of Care Code Established Pt Est Pt Level 1 (37923) Patient Type Established History Problem Focused Exam Problem Focused Medical Decision Making Straight Forward Time Spent (min) 20 Assessment & Plan Assessment & Plan Orders: Orders AMB Medroxyprogesterone Injection Patient Supplied Today Z30.09 - Encounter for other general counseling and advice on contraception
== END 2023-04-30 10:23 | disposition home or self-care (01) ==
LOC: HO.HWS 09:58
PROVIDERS: PCP Internal Medicine; Visit Provider Obstetrics & Gynecology
DX: Z30.09 Encounter for other general counseling and advice on contraception (principal)

== ENCOUNTER → 2023-04-30 09:58 | Outpatient (BNVA) | payer OTHER, SELFPAY | PROVIDERS: PCP Internal Medicine; Visit Provider Obstetrics & Gynecology | DX: Z30.09 Encounter for other general counseling and advice on contraception (principal) | CPT/HCPCS: 96372; 99211; J1050 ==

== ENCOUNTER 2023-07-26 12:55 | Outpatient (AMB) | payer OTHER, SELFPAY ==
[2023-07-26 13:31] VITALS: BMI 22.8
--- NOTE | 2023-07-26 13:31 | AM.OFFVISNUR ---
Intake Vital Signs 07/26/23 13:31 Height 5 ft 4 in Weight 133 lb BMI 22.8 Intake Visit Reasons: Depo Washer Assembler Required: No Allergies penicillin V Allergy (Unknown, Verified 04/24/23 11:12) shortness of breath Is last menstrual period known: Yes Post menopausal: No Patient : No Nursing Note Sierra is here for scheduled Depo provera injection. This is her second injection and she reports LMP 06/15/23 with continued bleeding today. Bleeding has decreased significantly and is now spotting. Advised pt that AUB is common as her body becomes accustomed to the medication. It is also common for periods to stop completely. Pt denies new medical problems or new medications. No c/o today. Pt tolerated injection well. She was advised to schedule her next injection in 12 weeks. Pt verbalizes understanding and agrees with plan. No further questions. Office Procedures Depo Questionnaire If YES to any of the following questions, please consult a provider. Date of last injection: 04/30/23 Date of last menstrual period: 06/15/23 Date of last gynecology exam: 08/02/22 Menstrual pattern since last injection has been: Normal Irregular bleeding?: Yes Breast lumps or other breast changes?: No Changes in weight or appetite?: No Depression or changes in mood?: No Abnormal hair growth or loss?: No Skin problems (rash, acne, discoloration)?: No Pain at the injection site?: No Headaches?: No Nervousness?: No Abdominal pain or cramping?: No Dizziness or nausea?: No Fatigue or weakness?: No Decrease in sexual drive?: No Chest pain or shortness of breath?: No Swelling in arms or legs?: No Form completed by?: Josephine Lott bottling line attendant Meds Depo-Provera 150 mg/mL intramuscular syringe Performing Provider: Warner Davidson MD [place] [facility] [place] [facility] Administered by: Josephine Lott on 07/26/23 13:38 Dose Route Admin Location Dispensed Lot Number Expiration Date [facility] Manager Urgent [facility] 150 mg IM Left deltoid 1 mL [id number] 08/03/25 44238-042-97 [facility] Coding Level of Care Code Established Pt Est Pt Level 1 (36209) Patient Type Established History Problem Focused Medical Decision Making Straight Forward Time Spent (min) 11 Assessment & Plan Assessment & Plan Orders: Orders AMB Medroxyprogesterone Injection Patient Supplied Today Z30.42 - Encounter for surveillance of injectable contraceptive
== END 2023-07-26 13:24 | disposition home or self-care (01) ==
LOC: HO.HWS 12:55
PROVIDERS: PCP Internal Medicine; Visit Provider Obstetrics & Gynecology
DX: Z30.42 Encounter for surveillance of injectable contraceptive (principal)

== ENCOUNTER → 2023-07-26 12:55 | Outpatient (BNVA) | payer OTHER, SELFPAY | PROVIDERS: PCP Internal Medicine; Visit Provider Obstetrics & Gynecology | DX: Z30.42 Encounter for surveillance of injectable contraceptive (principal) | CPT/HCPCS: 96372; 99211; J1050 ==

== ENCOUNTER 2023-10-28 13:08 | Outpatient (AMB) | payer OTHER, SELFPAY ==
[2023-10-28 14:53] VITALS: BMI 21.6
--- NOTE | 2023-10-28 14:53 | AM.OFFVISNUR ---
Intake Vital Signs 10/28/23 14:53 Height 5 ft 4 in Weight 57.153 kg BMI 21.6 Intake Visit Reasons: DEPO Allergies penicillin V Allergy (Unknown, Verified 04/24/23 11:12) shortness of breath Nursing Note Pt came for her Depo-provera inj, pt is 4 days overdue, for inj. Pt had bleeding mid September, did 3 home tests 1st one broke, 2nd and 3rd were positive per pt. test in office is Negative today. Discussed with DR Davidson and He ordered Beta HCG which is <2. Pt given injection and advised to use back up method of control x 7 days. Pt also missed her AG in October , will send OA message to reschedule. Next Depo appt has been scheduled. Pt also would like her rx transferred to [facility] pharmacy. Office Procedures Depo Questionnaire If YES to any of the following questions, please consult a provider. Date of last injection: 07/26/23 Date of last menstrual period: 09/17/23 Date of last gynecology exam: 08/02/22 Menstrual pattern since last injection has been: Light test in office results: Negative Irregular bleeding?: Yes Breast lumps or other breast changes?: No Changes in weight or appetite?: No Depression or changes in mood?: No Abnormal hair growth or loss?: No Skin problems (rash, acne, discoloration)?: No Pain at the injection site?: No Headaches?: No Nervousness?: No Abdominal pain or cramping?: Yes Dizziness or nausea?: No Fatigue or weakness?: No Decrease in sexual drive?: No Chest pain or shortness of breath?: No Swelling in arms or legs?: No Form completed by?: Felicitas Dolan LPN Office Meds Depo-Provera 150 mg/mL intramuscular syringe Performing Provider: Warner Davidson MD Performing Location: [facility] Administered by: Akiko Dolan LPN on 10/28/23 14:54 Dose Route Admin Location Dispensed Lot Number Expiration Date [facility] Manager Garage 150 mg IM left deltoid 1 mL [id number] 12/02/26 34648-742-60 [facility] Coding Level of Care Code Established Pt Est Pt Level 1 (31890) Patient Type Established History Problem Focused Exam Problem Focused Medical Decision Making Low Complexity Time Spent (min) 25 Comment Pt was in office awaiting labs Assessment & Plan Assessment & Plan Orders: Orders HCG Quantitative Today N91.2 - Amenorrhea, unspecified AMB Medroxyprogesterone Injection Patient Supplied Today Z30.42 - Encounter for surveillance of injectable contraceptive
== END 2023-10-28 14:50 | disposition home or self-care (01) ==
LOC: HO.HWS 13:08
PROVIDERS: PCP Internal Medicine; Visit Provider Advanced Practice Midwife
DX: Z30.42 Encounter for surveillance of injectable contraceptive (principal)

== ENCOUNTER → 2023-10-28 13:08 | Outpatient (BNVA) | payer OTHER, SELFPAY | PROVIDERS: PCP Internal Medicine; Visit Provider Advanced Practice Midwife ==

== ENCOUNTER 2023-10-28 13:43 | Outpatient (REF) | payer OTHER, SELFPAY ==
[2023-10-28 14:19] LABS: HCG Quantitative < 2 mIU/mL
== END 2023-10-28 13:44 | disposition home or self-care (01) ==
LOC: HO.LAB 13:43
PROVIDERS: PCP Internal Medicine; Visit Provider Obstetrics & Gynecology
DX: Z30.42 Encounter for surveillance of injectable contraceptive (principal); N91.2 Amenorrhea, unspecified
CPT/HCPCS: 36415; 84702; 96372; 99211; J1050

== ENCOUNTER 2023-11-24 06:27 | Emergency (ER) | payer OTHER, SELFPAY ==
--- NOTE | ~2023-11-24 | XR_ITS ---
EXAMINATION: XR SHOULDER, RIGHT CLINICAL INFORMATION: Pain of right shoulder COMPARISON: None available. TECHNIQUE: Three views of the right shoulder. FINDINGS: The humeral head is well positioned over the intact glenoid. Small bone island of the humeral head. No suspicious osseous lesion. Glenohumeral joint space is normal: no arthritic deformity, fracture or subluxation. No calcium deposition within rotator cuff tendons. Acromioclavicular joint is normal. The subacromial space is normal. There are no osteophytes projecting from the undersurface of the acromioclavicular joint. No hook-shaped acromion, os acromiale or subacromial enthesophyte. No osseous findings that would predispose to a subacromial impingement disorder. The visualized portion of the right lung is normal. XR/XR shoulder RT min 2V IMPRESSION: Normal right shoulder.
[2023-11-24 06:32] VITALS: BP 122/78; PULSE 83; RESP 14; TEMP 37.1; O2SAT 99; BMI 22.2
--- NOTE | 2023-11-24 06:56 | PC.NURSE ---
patient arrives through external triage complaining of right shoulder pain. patient states she has a hx of lu greenes and will frequently get pains in her joints but two weeks ago she woke up and her shoulder was bothering her and today she states she cannot move it. CMS intact to extremity, patient denies any injuries or recent falls, denies dislocations in the past, patient endorsing pain to palpation. xray completed. awaiting further eval at this time
--- NOTE | 2023-11-24 07:08 | ED_ITS ---
HPI - Extremity Problem General Chief complaint: Extremity Injury, Upper Stated complaint: right shoulder pain Time Seen by Provider: 11/24/23 06:49 Source: patient Mode of arrival: ambulatory Limitations: no limitations History of Present Illness ED Provider: Kyrie Napier PA-C HPI Narrative: 33 yo female with history of Lucas-Danlos Syndrome with diagnosis of recent muscle spasm of the right shoulder who presents to the ER today complaining of ongoing right shoulder pain x3 weeks. Patient states she woke up with the pain earlier this month and denies any trauma or injury. The pain has been constant and is limiting the range of motion of her right upper extremity. She states she has aches and pains throughout her entire body due to her Lucas-Danlos syndrome. She was seen at [facility] on 11/07 for the pain but at the time is was more in the right side of her neck and radiated to the shoulder. She had a CTA of the head and neck with concern for dissection, but it was normal. She was told it was a muscle spasm and she was prescribed Valium. She had had no relief and reports ongoing pain in the front of her shoulder, radiating up into the neck along with pain in her scapula. She had limited ROM due to this. No numbness, weakness, or tingling. She is a mom of 5 children and does not work. She is right hand dominant and has been having to seed cone picker her 1 yo with her left arm. Complaint: extremity pain and joint pain Onset (ago): week(s) (3) Pain Consistency: constant Location: right and upper extremity Severity scale (1-10): 8 Quality: aching and sharp Radiation: proximal and distal Relieving factors: immobilization Exacerbating factors: range of motion and palpation Associated symptoms: denies other symptoms Related Data Previous Rx's ?Medication ?Instructions ?Recorded medroxyprogesterone 150 mg/mL 150 mg IM [id number] #1 mL 04/24/23 intramuscular suspension (Depo-Provera) naproxen 500 mg tablet 500 mg PO BID PRN pain #20 tabs 11/24/23 Allergies Allergy/AdvReac Type Severity Reaction Status Date / Time penicillin V Allergy Unknown shortness Verified 11/24/23 06:34 of breath Review of Systems Review of Systems: Yes all other systems are reviewed and are negative [facility] Past Medical History Medical History Left ovarian cyst Endometrial polyp Asthma Lucas-Danlos syndrome Surgical History (Reviewed 04/24/23 @ 11: by Warner Davidson MD) Hx of cholecystectomy Family History Family History (Reviewed 04/24/23 @ 11: by Warner Davidson MD) Paternal Grandfather Medical history non-contributory Paternal Grandmother Cancer Maternal Grandmother Medical history non-contributory Asthma Maternal Grandfather Medical history non-contributory Father Medical history non-contributory Mother Medical history non-contributory Social History Social History Household Members: Children Housing: Apartment Alcohol intake: never Comment: period cramps Patient Tobacco Use Status: Never used Tobacco Smoked in Last 30 Days: No Use of substances other than those prescribed or required for medical reasons: No Advance Directives: No Advance Directives Information Provided: No Do you have a plan to hurt others: No Plan Patient : No Sexual orientation: Straight/Heterosexual Gender identity: Female Physical Exam Vital Signs: Vital Signs: Last Vital Signs Temp 98.8 F 11/24/23 08:55 Pulse 71 11/24/23 08:55 Resp 16 11/24/23 08:55 BP 118/84 11/24/23 08:55 Pulse Ox 100 11/24/23 08:55 O2 Del Method Room Air 11/24/23 08:55 BMI result Body Mass Index 22.2 Appearance: Alert. Oriented X3. No acute distress. Head: normocephalic, atraumatic. Eyes: Pupils equal, round and reactive to light. ENT: Pharynx normal. No tonsillar swelling or exudate. Neck: Normal inspection. Neck supple. No midline tenderness. full range of motion. soft tissue tenderness on the right side. CVS: Normal heart rate and rhythm. Pulses normal. Respiratory: No respiratory distress. Breath sounds normal. Abdomen: Soft and nontender. +BS x4 Skin: Skin warm and dry. Normal skin color. Normal skin turgor. No rashes. Extremities: No lower extremity edema. No joint swelling. right shoulder normal to inspection, palpation of the joint is tender in the AC joint area, it feels in place. she had limited abduction to about 30 degrees laterally. Neuro/psych: Oriented X 3. No motor deficit. No sensory deficit. CN II-XII intact. Normal speech and cognition. Medications Administered Discontinued Medications Generic Name Dose Route Start Last Admin Trade Name Heike PRN Reason Stop Dose Admin Acetaminophen 975 mg 11/24/23 07:46 11/24/23 07:54 Acetaminophen 325 Mg Tablet PO 11/24/23 07:47 975 mg ONCE ONE Administration Ketorolac Tromethamine 60 mg 11/24/23 07:46 11/24/23 07:55 Ketorolac Tromethamine 60 Mg/2 Ml Vial IM 11/24/23 07:47 60 mg ONCE ONE Administration Medical Decision Making Medical Decision Making MDM Narrative: 33 yo female with history of Lucas-Danlos Syndrome with diagnosis of recent muscle spasm of the right shoulder who presents to the ER today complaining of atraumatic right shoulder pain x3 weeks. Denies any recent dislocation. CTA head/neck at [facility] 11/07 negative for dissection. Pain is localized to the shoulder and radiates to the scapula and proximal arm, worse with ROM. Denies any recent dislocation or injury. X-ray of the shoulder was done today that was unremarkable. Will place the patient in a sling for the next 72 hours. Start anti- inflammatories. Refer to orthopedics for further evaluation and treatment. Also recommend she follow-up with her primary care doctor, has not seen them in quite some time. We discussed limitations of the sling and importance of range of motion as tolerated. Stable for discharge home with supportive care and outpatient follow-up. Patient agrees with plan. Differential Diagnosis Differential Diagnoses: The differential diagnosis associated with the presentation includes Shoulder dislocation, ligamentous injury, tendon injury, tendonitis, labral tear, rotator cuff injury Consult Healthcare Provider Management of the patient was discussed with: Appeals Assistant (Sukhwinder from Orthopedics) Independent Interpretation I performed an independent interpretation of an: Plain X-Ray Interpretation: no AC joint separation, no acute fracture or dislocation Radiology Impression Discussion of test interpretation with radiology: I have reviewed the radiologist's reading. Radiologist Impression: EXAMINATION: XR SHOULDER, RIGHT CLINICAL INFORMATION: Pain of right shoulder COMPARISON: None available. TECHNIQUE: Three views of the right shoulder. FINDINGS: The humeral head is well positioned over the intact glenoid. Small bone island of the humeral head. No suspicious osseous lesion. Glenohumeral joint space is normal: no arthritic deformity, fracture or subluxation. No calcium deposition within rotator cuff tendons. Acromioclavicular joint is normal. The subacromial space is normal. There are no osteophytes projecting from the undersurface of the acromioclavicular joint. No hook-shaped acromion, os acromiale or subacromial enthesophyte. No osseous findings that would predispose to a subacromial impingement disorder. The visualized portion of the right lung is normal. XR/XR shoulder RT min 2V IMPRESSION: Normal right shoulder. External Record Review External record reviewed: Outpatient record and Outside ED record Prescription Management I considered prescription management with: Pain Medication Chronic Conditions Patient?s care impacted by: Other (Lucas Danlos syndrome) Critical Care Time Critical Care Time Critical Care Time: No Discharge Plan Discharge Clinical Impression: Right shoulder pain Qualifiers: Chronicity: acute Qualified Code(s): M25.511 - Pain in right shoulder Patient Disposition: Home, Self-Care Instructions: Shoulder Pain (ED) Additional Instructions: Your x-ray today was normal. Rest your arm and wear the provided sling for the next 3 days. Use ice several times per day Take the prescribed anti-inflammatory medication and/or Tylenol as needed for pain. Follow up Orthopedics for further evaluation and treatment - call tomorrow to make an appointment. name and number below Prescriptions: New naproxen 500 mg tablet 500 mg PO BID PRN (Reason: pain) Qty: 20 0RF No Action medroxyprogesterone [Depo-Provera] 150 mg/mL suspension 150 mg IM [id number] Qty: 1 3RF Referrals: [facility] [Provider Group] (right shoulder pain, EDS) Sita Parker MD [Primary Care Provider] - Interventions: ED Discharge Assessment Last Done: 11/24/23 08:55 Discharge Date/Time: 11/24/23 08:59 Print Language: Filipino
[2023-11-24] MEDS: Acetaminophen 325 MG TABLET 975 MG PO (07:54)
[2023-11-24] MEDS: Ketorolac Tromethamine 60 MG/2 ML VIAL IM (07:55)
[2023-11-24 08:55] VITALS: BP 118/84; PULSE 71; RESP 16; TEMP 37.1; O2SAT 100
== END 2023-11-24 08:59 | disposition home or self-care (01) ==
PROVIDERS: Emergency Provider Emergency Medicine; PCP Internal Medicine
DX: M25.511 Pain in right shoulder (principal); R25.2 Cramp and spasm
CPT/HCPCS: 73030; 96372; 99283; 99284; J1885

== ENCOUNTER 2023-12-24 08:01 | Outpatient (AMB) | payer OTHER, SELFPAY ==
--- NOTE | 2023-12-24 08:08 | MHC.OFFVIS ---
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 The patient states that her symptoms have gotten worse over the last year. She was diagnosed with Lucas-Danlos syndrome approximately 2 years ago. She states that at times it feels like her right shoulder will ?pop out?. She also reports intermittent ?numb feeling? in her right arm. She has been to formal physical therapy which aggravated her pain. She has failed the last 6 weeks of conservative treatment. She has tried Tylenol and Naprosyn which gave her minimal relief. Mens Locker Room Attendant Services: Mens Locker Room Attendant Present (Carie ([id number])) Allergies penicillin V Allergy (Unknown, Verified 12/24/23 08:10) shortness of breath Medication List - Last Reconciled 12/24/23 by Emmanuel Francisco MD medroxyprogesterone (Depo-Provera) 150 mg IM [id number] naproxen 500 mg PO BID PRN PFSH Medical History Left ovarian cyst Endometrial polyp Asthma Lucas-Danlos syndrome Surgical History Hx of cholecystectomy Family History Paternal Grandfather Medical history non-contributory Paternal Grandmother Cancer Maternal Grandmother Medical history non-contributory Asthma Maternal Grandfather Medical history non-contributory Father Medical history non-contributory Mother Medical history non-contributory Social History (Updated 12/24/23 @ 08:11 by Billy Katz) Household Members: Children Both parents involved: Yes Housing: Apartment Alcohol intake: never Comment: period cramps Patient Tobacco Use Status: Never used Tobacco Substance Use Type: Marijuana Sexual orientation: Straight/Heterosexual Gender identity: Female Female Reproductive History Menstrual Age of Menarche: 14 Physical Exam Const Other: Well-nourished well-developed very friendly female awake alert and oriented x3 in no acute distress Extrem Other: Bilateral upper extremity examination shows good capillary refill, no skin lesions noted, normal sensation light touch Right shoulder examination shows decreased range of motion when compared to her left shoulder secondary to pain, positive apprehension test, minimal tenderness over her acromioclavicular joint Results Reviewed Results Reviewed: X-rays of the patient's right shoulder show moderate acromioclavicular joint narrowing, a type 2 acromion, no acute bony abnormalities Assessment & Plan Assessment & Plan (1) Instability of right shoulder joint: Code(s): M25.311 - Other instability, right shoulder Category: Medical Plan Ms. Miguel Ángel Diaz presents with progressively worsening right shoulder pain and symptoms of instability possibly due to a labral tear. Thus, I will send the patient for an MRI of her right shoulder for further evaluation. I did give her a prescription for a Medrol Dosepak to help with her symptoms in the meantime. The do's and don'ts of lifting were discussed at length with the patient. I will see her back once the MRI is completed to discuss the findings and treatment options. Feel free to call me at any time should questions regarding her orthopedic management arise. Thank you very much for asking me to see this very friendly patient. I spent 22 minutes in reviewing the patient's records and imaging studies, seeing the patient and documenting in the medical record. Orders: Orders MR shoulder RT wo con Today M25.311 - Other instability, right shoulder Medications: New methylprednisolone (Medrol (Vaughn)) PO PER PKG DIR 21 ea 0RF Coding Level of Care Code New Pt Level 3 (24959) Diagnoses Instability of right shoulder joint M25.311
== END 2023-12-24 08:26 | disposition home or self-care (01) ==
PROVIDERS: PCP Internal Medicine; Visit Provider Orthopaedic Surgery
DX: M25.311 Other instability, right shoulder (principal)
CPT/HCPCS: 99203

== ENCOUNTER → 2023-12-24 08:01 | Outpatient (BNVA) | payer OTHER, SELFPAY | PROVIDERS: PCP Internal Medicine; Visit Provider Orthopaedic Surgery | DX: M25.311 Other instability, right shoulder (principal) | CPT/HCPCS: 99202 ==

== ENCOUNTER 2024-02-06 08:43 | Outpatient (AMB) | payer OTHER, SELFPAY ==
--- NOTE | 2024-02-06 08:56 | AM.OFFVISNUR ---
Vital Signs 02/06/24 08:57 Height 5 ft 4 in Weight 64.07 kg BMI 24.2 Intake Visit Reasons: depo Allergies penicillin V Allergy (Unknown, Verified 12/24/23 08:10) shortness of breath Nursing Note Sierra is here for her Depo-provera inj. Urine test done / NEG,as pt late for her inj. Pt tolerated inj well. no complaints offered. Pt was reminded to use condoms x 2 weeks after this shot. Follow up for AG on 03/25/24. Pt verbs understanding. Office Procedures Depo Questionnaire If YES to any of the following questions, please consult a provider. Date of last injection: 10/28/23 Date of last gynecology exam: 08/02/22 Menstrual pattern since last injection has been: Not Applicable test in office results: Negative Irregular bleeding?: No Breast lumps or other breast changes?: No Changes in weight or appetite?: No Depression or changes in mood?: No Abnormal hair growth or loss?: No Skin problems (rash, acne, discoloration)?: No Pain at the injection site?: No Headaches?: No Nervousness?: No Abdominal pain or cramping?: No Dizziness or nausea?: No Fatigue or weakness?: No Decrease in sexual drive?: No Chest pain or shortness of breath?: No Swelling in arms or legs?: No Form completed by?: Felicitas Dolan LPN Office Meds Depo-Provera 150 mg/mL intramuscular syringe Performing Provider: Veda Sanabria CNM Performing Location: [facility] Administered by: Akiko Dolan LPN on 02/06/24 08:57 Dose Route Admin Location Dispensed Lot Number Expiration Date [facility] [employer] 150 mg IM left deltoid 1 mL [id number] 04/04/26 65007-589-26 [facility] Results AMB Test Urine AMB Test Urine Negative Last Edit by Akiko Dolan LPN on 02/06/24 09:05 Assessment & Plan Assessment & Plan Orders: Orders AMB Medroxyprogesterone Injection Patient Supplied Today Z30.42 - Encounter for surveillance of injectable contraceptive Medications: New Depo-Provera (medroxyprogesterone) 150 mg IM ONCE 1 mL 0RF NS Z30.42 - Encounter for surveillance of injectable contraceptive
[2024-02-06 08:57] VITALS: BMI 24.2
== END 2024-02-06 09:42 | disposition home or self-care (01) ==
LOC: HO.HWS 08:43
PROVIDERS: PCP Internal Medicine; Visit Provider Advanced Practice Midwife
DX: Z30.42 Encounter for surveillance of injectable contraceptive (principal)

== ENCOUNTER → 2024-02-06 08:43 | Outpatient (BNVA) | payer OTHER, SELFPAY | PROVIDERS: PCP Internal Medicine; Visit Provider Advanced Practice Midwife | DX: Z30.42 Encounter for surveillance of injectable contraceptive (principal) | CPT/HCPCS: 96372; 99211; J1050 ==